=== PATIENT | female | born 1975 | race Caucasian/White ===

== ENCOUNTER 2021-06-26 09:30 | Day surgery (SDC) | payer OTHER ==
[~2021-06-26 09:30] MED LIST: CIPRO500 MG PO; FIRST-OMEPR2 MG/1 ML PO; OXYC1TAB9 PO; PROTONIX40 MG PO; RECTICARE30 GM TP
== END 2021-06-26 14:30 | disposition home or self-care (01) ==
LOC: AMB-ENDOS 09:30
PROVIDERS: ATTEND Surgery
DX: D13.1 Benign neoplasm of stomach (principal); D13.2 Benign neoplasm of duodenum; Z20.822 Contact with and (suspected) exposure to COVID-19